=== PATIENT | female | born 1935 ===

== ENCOUNTER → 2022-01-11 09:39 | Outpatient (CLI) | payer MEDICARE, SELFPAY ==
--- NOTE | ~2022-01-11 | MR_ITS ---
EXAMINATION: MR hip RT wo con DATE: 01/11/2022 11:25 INDICATION: Right hip pain TECHNIQUE: Magnetic resonance imaging (MRI) of the right hip was performed without intravenous contr ast. Sequences included full-field axial PD-weighted FS FSE and T1-weighted FSE, coronal of the pelvi s with PD-weighted FS FSE, T2-weighted FSE and T1-weighted FSE, small field of view of the right hip with axial PD-weighted FS FSE, sagittal PD-weighted FS FSE, coronal PD-weighted FS FSE and coronal T2 weighted FSE. Additional radial T1-weighted FGR oriented orthogonal to the acetabular rim were obt ained for evaluation of the labrum. COMPARISON: None FINDINGS: Bones/labrum/cartilage: Mild lumbar dextrocurvature with moderate spondylosis. There is collapse and approximately approximat blake 2.5 x 2.3 cm region of the articular surface at the superior and posterosuperior aspect of the ri ght femoral head with prominent underlying marrow edema. No greater than 1 mm step-off along the booker cular cortex. It is unclear whether this represents insufficiency fracture or sequela of osteonecrosi s. 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 There are moderate-sized marginal osteophytes about the right femoral head. Tearing of the anter osuperior to posterior right acetabular labrum. The contralateral left hip is not diagnostically eval uated on the larger field of view images of the pelvis. The left hip joint space does however appear relatively preserved compared with the right hip. There is suggestion of an additional tear at the ba se of at at least the superolateral left acetabular labrum. Fluid: Likely reactive small right hip joint effusion. Physiologic amount fluid in the left hip joint. No bu rsitis or other abnormal fluid collections. Soft tissues: Normal and symmetric muscle bulk and signal in the pelvis and visualized proximal thighs. The iliopso as, gluteal and proximal hamstring tendons are normal. There multiple large diverticula along the sig moid colon without adjacent inflammatory stranding to suggest diverticulitis. Decompressed bladder is unremarkable. The uterus is not identified and has likely been surgically resected. Moderate-sized infraumbilical ventral hernia containing fat and a short segment of nonobstructed transverse colon. N o pathologically enlarged pelvic/inguinal lymphadenopathy. IMPRESSION: 1. Subtle collapse of the articular surface at the superior and posterosuperior aspect of the right f emoral head which could represent sequela of chronic osteonecrosis or insufficiency fracture. 2. 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 3. Bilateral acetabular labral tears. 4. Moderate-sized infraumbilical ventral hernia containing fat and nonobstructed short segment of tra nsverse colon. Reviewed, dictated and finalized at location B. IMPRESSION: 1. Subtle collapse of the articular surface at the superior and posterosuperior aspect of the right femoral head which could represent sequela of chronic oste onecrosis or insufficiency fracture. 2. 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 3. Bilateral acetabular labral tears. 4. Moderate-sized infraumbilical ventral hernia containing fat and nonobstructe d short segment of transverse colon.
== END ==
PROVIDERS: PCP Family Medicine; Visit Provider Orthopaedic Surgery
DX: M25.551 Pain in right hip (principal); M16.11 Unilateral primary osteoarthritis, right hip; S73.191A Other sprain of right hip, initial encounter; K43.9 Ventral hernia without obstruction or gangrene
CPT/HCPCS: 73721